=== PATIENT | female | born 1985 | race African-American/Black ===

== ENCOUNTER 2017-11-11 00:33 | Emergency (ER) | payer OTHER, MEDICAID ==
[~2017-11-11] VITALS: Ht 157.5 cm; Wt 59.0 kg
[~2017-11-11 00:33] MED LIST: ATIVAN1 MG PO; BACTRIM DS TAB1 EACH PO; BENTYL 20 MG TA20 M1 PO; CITROMA296 ML PO; IMITREX 50 MG T50 MG PO; LINZESS145 MCG PO; NOHOMEMEDICATIONS; NORTRIPTYLINE; PREDNISONE 20 M20 M1 PO; TRIAMCINOLONE A15 G1 TP; ZOFRAN ODT4 MG PO
[2017-11-11 01:19] LABS: ABSOLUTE EOSINOPHILS 0.2 thou/uL (0.0-0.7); ABSOLUTE MONOCYTES 0.6 thou/uL (0.0-1.2); ABSOLUTE NEUTROPHILS 2.2 thou/uL (1.6-8.1); BASOPHILS 0.4 %; EOSINOPHILS 2.8 %; HEMATOCRIT 34.9 % (37.0-47.0); HEMOGLOBIN 11.6 gm/dL (12.0-15.0); LYMPHOCYTES 50.2 %; MCH 29.2 pg (26.0-34.0); MCHC 33.1 g/dL (28.0-37.0); MCV 88.4 fL (80.0-100.0); MONOCYTES 10.6 %; NUCLEATED RBCS 0 /100WBC; PLATELET COUNT* 182 thou/uL (150-400); RBC 3.95 mil/uL (4.20-5.00); RDW-CV 16.7 % (10.5-14.5)
[2017-11-11 01:40] LABS: ANION GAP 8 mmol/L (7-16); BUN 17 mg/dL (7-18); CALCIUM 8.3 mg/dL (8.5-10.1); CHLORIDE 105 mmol/L (98-107); CO2 27 mmol/L (21-32); CREATININE 0.8 mg/dL (0.6-1.3); GLUCOSE 104 mg/dL (70-99); POTASSIUM 3.6 mmol/L (3.5-5.1); SODIUM 140 mmol/L (136-145)
[2017-11-11 01:47] LABS: ALBUMIN 3.4 g/dL (3.4-5.0); ALKALINE PHOSPHATASE 92 U/L (46-116); SGOT 28 U/L (15-37); SGPT 44 U/L (30-65); TOTAL PROTEIN 7.1 g/dL (6.4-8.2); TROPONIN-I LEVEL <0.06 ng/mL (<0.06)
[2017-11-11 01:50] LABS: TOTAL BILIRUBIN < 0.1 mg/dL (<0.1-1.0)
[2017-11-11 03:00] VITALS: BP 108/73
--- NOTE | 2017-11-11 16:36 | EKG ---
[place] [address] ELECTROCARDIOGRAM REPORT Name: ALMA CUMMINGS Room: [facility]#: [id number] Admission: 11/11/17 Attend Phys: Discharge: 11/11/17 Date of : 89 Report #: [id number] THIS REPORT FOR: //name// [facility] ED Test Date: 2017-11-11 Test Time: 00:39:04 Pat Name: ALMA CUMMINGS Department: Room: Gender: F Broadband Installer: YI : 1985 Requested By: Jigna Almazan Order Number: [id number] MD: Collin Gomes Measurements Intervals [place] Rate: 70 P: 62 MD: 163 QRS: 70 QRSD: 81 T: 44 QT: 391 QTc: 422 Interpretive Statements Sinus rhythm Probable left atrial enlargement RSR' in V1 or V2, probably normal variant Baseline wander in lead(s) V1 Compared to ECG 07/14/2017 02:47:19 RSR' in V1 or V2 now present Electronically Signed On 11-11-2017 16:35:50 [employer] by Collin Gomes [email or web address] <ELECTRONICALLY SIGNED> By: Jefferson Gomes MD, [facility] 11/11/17 1635 [id number] Jefferson Gomes MD, [facility] /EPI
== END 2017-11-11 03:01 | disposition home or self-care (01) ==
LOC: M.ERS 00:33
PROVIDERS: Emergency Medicine
DX: R07.9 Chest pain, unspecified (principal); F32.9 Major depressive disorder, single episode, unspecified; F17.210 Nicotine dependence, cigarettes, uncomplicated; Z88.0 Allergy status to penicillin